=== PATIENT | male | born 1975 | race Caucasian/White ===

== ENCOUNTER 2016-09-16 14:01 | Outpatient (CLI) | payer OTHER ==
[2016-09-17 00:48] LABS: HEPATITIS C AB IGG (ANTI-HCV) Negative (Negative)
[2016-09-17 19:54] LABS: C.TRACHOMATIS BY TMA Negative (Negative); N.GONORRHOEAE BY TMA Negative (Negative)
== END 2016-09-16 14:02 | disposition home or self-care (01) ==
LOC: LAB.N 14:01
PROVIDERS: ATTEND Physician Assistant
DX: Z11.3 Encounter for screening for infections with a predominantly sexual mode of transmission (principal)
CPT/HCPCS: 36415; 86780; 86803; 87389; 87491; 87591

== ENCOUNTER 2016-11-05 09:28 | Outpatient (CLI) | payer OTHER | END 2016-11-05 09:29 | disposition home or self-care (01) | DX: G47.30 Sleep apnea, unspecified (principal); G47.8 Other sleep disorders; R06.83 Snoring; R09.89 Other specified symptoms and signs involving the circulatory and respiratory systems ==

== ENCOUNTER 2021-07-16 08:00 | Outpatient (CLI) | payer OTHER | END 2021-07-16 23:59 | LOC: LAB.N 08:00 | PROVIDERS: ATTEND Family Medicine | DX: U07.1 COVID-19 (principal) ==

== ENCOUNTER 2024-02-23 08:00 | Outpatient (CLI) | payer OTHER ==
[2024-02-23 14:55] LABS: FECAL OCCULT BLOOD (FIT) NEGATIVE (NEGATIVE)
== END 2024-02-23 23:59 | disposition home or self-care (01) ==
LOC: LAB.N 08:00
PROVIDERS: ATTEND Family Medicine
DX: Z12.11 Encounter for screening for malignant neoplasm of colon (principal)
CPT/HCPCS: 82274